=== PATIENT | female | born 1980 | race Caucasian/White ===

== ENCOUNTER 2023-09-11 08:25 | Emergency (ER) | payer SELFPAY ==
[~2023-09-11] VITALS: Ht 177.8 cm; Wt 96.2 kg
[2023-09-11 08:30] VITALS: BP 148/76; PULSE 112; RESP 16; TEMP 98.3; O2SAT 100
[2023-09-11] MEDS ORDERED: LORazepam 2 MG/ML VIAL ONE (09:24)
[2023-09-11] MEDS: NACL 0.9% 1,000 ML IV ONE (09:44)
[2023-09-11] MEDS: LORazepam 2 MG/ML VIAL IVP ONE (09:48)
[2023-09-11 09:49] LABS: APPEARANCE,URINE CLEAR (CLEAR); BILIRUBIN,URINE NEGATIVE (NEGATIVE); BLOOD, URINE NEGATIVE (NEGATIVE); COLOR,URINE YELLOW (YELLOW); LEUKOCYTE ESTERASE ,URINE NEGATIVE (NEGATIVE); NITRITE, URINE NEGATIVE (NEGATIVE); PROTEIN,URINE NEGATIVE (NEGATIVE); UGLUCOSE NEGATIVE (NEGATIVE); UROBILINOGEN,URINE 0.2 EU/dL (0.2 - 1)
[2023-09-11 09:54] LABS: BASOPHILS % (AUTO) 0.4 % (0.0-2.0); EOSINOPHILS # (AUTO) 0.1 K/uL (0-0.4); EOSINOPHILS % (AUTO) 0.6 % (0.0-4.0); HEMATOCRIT 40.9 % (36-48); HEMOGLOBIN 13.7 g/dL (12.0-16.0); LYMPHOCYTES # (AUTO) 1.5 K/uL (2.5-16.5); LYMPHOCYTES % (AUTO) 13.2 % (20.5-51.1); MEAN CORPUSCULAR HEMOGLOBIN 30 pg (27-31); MEAN CORPUSCULAR HGB CONC 34 g/dL (33-37); MEAN CORPUSCULAR VOLUME 90.6 fL (80-94); MONOCYTES # (AUTO) 0.4 K/uL (0.8-1.0); MONOCYTES % (AUTO) 3.3 % (1.7-9.3); NEUTROPHILS # (AUTO) 9.2 K/uL (1.8-7.7); NEUTROPHILS % (AUTO) 82.5 % (42.2-75.2); PLATELET COUNT (AUTO) 334 K/uL (140-450); RED BLOOD CELL COUNT(AUTO) 4.51 MIL/uL (4.20-5.40); RED CELL DISTRIBUTION WIDTH 13.5 % (11.6-13.7); WHITE BLOOD COUNT (AUTO) 11.2 K/uL (4.8-10.8)
[2023-09-11 10:01] LABS: ANION GAP 12.6 (8-16); CALCIUM 9.5 mg/dL (8.5-10.1); CARBON DIOXIDE 26.8 mmol/L (21-32); CREATININE 0.7 mg/dL (0.6-1.3); POTASSIUM 3.4 mmol/L (3.5-5.1)
[2023-09-11 10:08] LABS: AMPHETAMINE, URINE POSITIVE ng/ml (NEG <=1000); BARBITURATE, URINE NEGATIVE ng/ml (NEG <=200); BENZODIAZEPINE, URINE NEGATIVE ng/mL (NEG <=200); CANNABINOID, URINE POSITIVE ng/mL (NEG <=50); COCAINE, URINE NEGATIVE ng/mL (NEG <=300); OPIATE, URINE NEGATIVE ng/mL (NEG <=2000); PHENCYCLIDINE SCREEN,URINE NEGATIVE ng/mL (NEG <=25)
[2023-09-11 10:11] LABS: ALANINE AMINOTRANSFERASE 19 U/L (12-78); ALKALINE PHOSPHATASE 85 U/L (50-136); ASPARTATE AMINOTRANSFERASE 11 U/L (15-37); BILIRUBIN,DIRECT 0.1 mg/dL (0.0-0.3); TOTAL BILIRUBIN 0.5 mg/dL (0.0-1.0); TOTAL PROTEIN, SERUM 8.1 g/dL (6.4-8.2)
[2023-09-11 12:31] VITALS: BP 110/62; PULSE 74; RESP 16; TEMP 98.3; O2SAT 100
[2023-09-11] MEDS ORDERED: ATI.5 PO (12:32)
== END 2023-09-11 12:50 | disposition home or self-care (01) ==
LOC: MED 08:25
DX: F41.9 Anxiety disorder, unspecified (principal); F15.90 Other stimulant use, unspecified, uncomplicated; F17.200 Nicotine dependence, unspecified, uncomplicated; F12.90 Cannabis use, unspecified, uncomplicated; Z79.899 Other long term (current) drug therapy
CPT/HCPCS: 36415; 80048; 80076; 80305; 81003; 81025; 84484; 85025; 93005; 96361; 96374; 99284; J2060; J7030